=== PATIENT | female | born 1990 | race African-American/Black ===

== ENCOUNTER 2021-07-14 17:47 | Emergency (ER) | payer SELFPAY ==
[~2021-07-14] VITALS: Ht 149.9 cm; Wt 64.9 kg
[2021-07-14] MEDS ORDERED: LIDOCAINE 1% W/EPINEPHRINE 20 ML VIAL INJ ONE (18:15)
[2021-07-14] MEDS ORDERED: LIDOCAINE 1% W/EPINEPHRINE 20 ML VIAL ONE (18:24)
== END 2021-07-14 20:30 | disposition home or self-care (01) ==
LOC: FSED 17:58
DX: S81.811A Laceration without foreign body, right lower leg, initial encounter (principal); W45.8XXA Other foreign body or object entering through skin, initial encounter; W22.09XA Striking against other stationary object, initial encounter; Y93.01 Activity, walking, marching and hiking; Y92.008 Other place in unspecified non-institutional (private) residence as the place of occurrence of the external cause
CPT/HCPCS: 96372; 99283